=== PATIENT | male | born 1990 | race Caucasian/White ===

== ENCOUNTER 2018-07-09 20:17 | Emergency (ER) | payer OTHER ==
[2018-07-09 20:30] VITALS: BP 151/52
--- NOTE | 2018-07-09 20:34 | ED Physician Documentation ---
PD HPI LOWER EXT INJURY - Stated complaint Stated Complaint: ANKLE INJURY - Chief complaint Chief Complaint: Ext Problem - History obtained from History obtained from: Patient - History of Present Illness PD HPI LOW EXT INJURY LOCATION: Right, Ankle Type of injury: Fall, Twist (he was sliding into base playing softball and felt ankle twist and pop. He says his foot was misdirected to internal rotation. He grabbed it and pulled it back to straight. Too painful for standing. Here by EMS.) Where injury occurred: [place] Tim[place] - onset: Today Timing - details: Abrupt onset, Still present Review of Systems Skin: denies: Abrasion (s), Laceration (s) Neurologic: denies: Focal weakness, Numbness, Altered mental status, Head injury PD PAST MEDICAL HISTORY - Past Medical History Cardiovascular: None Musculoskeletal: None - Present Medications Home Medications: Ambulatory Orders Medication Instructions Recorded Confirmed Ibuprofen [Motrin] 600 mg PO TID #30 tab 07/09/18 - Allergies Allergies/Adverse Reactions: Allergies Allergy/AdvReac Type Severity Reaction Status Date / Time No Known Drug Allergies Allergy Verified 07/09/18 20:26 PD ED PE NORMAL - Vitals Vital signs reviewed: Yes - General General: Alert and oriented X 3, No acute distress, Well developed/nourished - Derm Derm: Normal color, Warm and dry - Extremities Extremities: No edema, No calf tenderness / cord, Other (right ankle with some swelling/effusion laterally and is tender medial and lateral. Stress testing deferred due to pain. ) - Neuro Neuro: No motor deficit, No sensory deficit, Other (proximal lower leg without tenderness. Achilles is firm and intact. ) - Psych Psych: Normal mood, Normal affect Results - Vitals Vitals: Vital Signs - 24 hr 07/09/18 20:24 Temperature 37.3 C Heart Rate 94 Respiratory 17 Rate Blood Pressure 151/52 H O2 Saturation 98 Oxygen O2 Source Room air - Rads (name of study) ankle xray Radiology: Prelim report reviewed, EMP read contemporaneously (no fractures) Procedures - Splint (location) right ankle Splint applied by: Tech Type of splint: Other (walking boot) Other: Patient tolerated well, No complications, Neurovascular intact PD MEDICAL DECISION MAKING - ED course Complexity details: reviewed results (no fractures, but very tender at medial and lateral ankle, and he describes a dislocation and reducing it at the scene, so would be complete tear of lateral ligaments. xray without fractures. Ankle to tender for stress testing ligaments right now, so will treat as torn. Consider if would need surgery. ), considered differential, d/w patient - Sepsis Event Vital Signs: Vital Signs - 24 hr 07/09/18 20:24 Temperature 37.3 C Heart Rate 94 Respiratory 17 Rate Blood Pressure 151/52 H O2 Saturation 98 Oxygen O2 Source Room air Departure - Departure Disposition: 01 Home, Self Care Clinical Impression: Ankle dislocation Qualifiers: Encounter type: initial encounter Laterality: right Qualified Code(s): S93.04XA - Dislocation of right ankle joint, initial encounter High ankle sprain of right lower extremity Qualifiers: Encounter type: initial encounter Qualified Code(s): S93.431A - Sprain of tibiofibular ligament of right ankle, initial encounter Condition: Stable Record reviewed to determine appropriate education?: Yes Instructions: ED Sprain Ankle Follow-Up: MIGUEL Brito [Provider Group] Prescriptions: Ibuprofen [Motrin] 600 mg PO TID #30 tab Comments: Use the cast boot regularly for the next week until follow-up. He will likely need it for 4 weeks. Crutches as needed initially for nonweightbearing for Swelling and pain in initial healing. Partial weightbearing is okay after a few days. Do not have full weightbearing until seen in follow-up. Follow-up with your primary care in 4-7 days after the swelling has gone down, call tomorrow for an appointment. It sounds like her ankle had dislocated which means torn ligaments. These may heal on their own or sometimes will need repair. That will be better able to be assessed when it is hurting less and the swelling is down after several days or so. Sometimes he can get treated with just the cast boot for a month. Forms: Activity restrictions Discharge Date/Time: 07/09/18 21:43
[2018-07-09] MEDS ORDERED: ACETAMINOPHEN 325 MG TABLET PO STA (20:54)
[2018-07-09] MEDS ORDERED: traMADol 50 MG TABLET PO STA (20:54)
[2018-07-09] MEDS ORDERED: IBUPROFEN 600 MG TABLET PO STA (20:54)
--- NOTE | 2018-07-09 20:57 | XRAY Report ---
Procedure Date: 07/09/2018 Accession Number: [id number] / [id number] Procedure: XR - Ankle 3 View RT CPT Code: FULL RESULT: EXAM: RIGHT ANKLE RADIOGRAPHY EXAM DATE: 07/09/2018 08:32 PM. CLINICAL HISTORY: Ankle pain COMPARISON: None. TECHNIQUE: 3 views. FINDINGS: Bones: No fracture or focal bony lesion. Joints: No evidence of dislocation. Soft Tissues: No unexpected soft tissue findings. IMPRESSION: No evidence of fracture or dislocation. [facility]
== END 2018-07-09 21:43 | disposition home or self-care (01) ==
LOC: ED 20:17
DX: S93.04XA Dislocation of right ankle joint, initial encounter (principal); S93.431A Sprain of tibiofibular ligament of right ankle, initial encounter; X50.9XXA Other and unspecified overexertion or strenuous movements or postures, initial encounter; Y93.64 Activity, baseball; Y92.830 Public park as the place of occurrence of the external cause
CPT/HCPCS: 73610; 99283; A9270